=== PATIENT | female | born 1985 | race American Indian/Alaskan Native ===

== ENCOUNTER 2021-05-13 04:17 | Emergency (ER) | payer MEDICAID ==
[2021-05-13 04:51] VITALS: BP 141/72
[2021-05-13] MEDS ORDERED: ASPIRIN 325 MG TAB PO ONE (04:53)
--- NOTE | 2021-05-13 05:24 | XRay Report ---
CHEST 2 VIEWS INDICATION / CLINICAL INFORMATION: CHEST PAIN. COMPARISON: None available. FINDINGS: SUPPORT DEVICES: None. HEART / MEDIASTINUM: No significant abnormality. LUNGS / PLEURA: No significant pulmonary or pleural abnormality. No pneumothorax. ADDITIONAL FINDINGS: No significant additional findings. IMPRESSION: 1. No acute findings. Signer Name: Ben Cardona MD Signed: 05/13/2021 5:20 AM Workstation Name: [id number]
[2021-05-13 05:37] LABS: Basophils % (Auto) 0.5 % (0.0-1.8); Eosinophils # (Auto) 0.1 K/mm3 (0.0-0.4); Eosinophils % (Auto) 2.1 % (0.0-4.3); Hematocrit 38.4 % (30.3-42.9); Hemoglobin 12.6 gm/dl (10.1-14.3); Lymphocytes # (Auto) 1.6 K/mm3 (1.2-5.4); Lymphocytes % (Auto) 26.1 % (13.4-35.0); Mean Corpuscular HGB Conc 33 % (30-34); Mean Corpuscular Volume 88 fl (79-97); Monocytes # (Auto) 0.7 K/mm3 (0.0-0.8); Monocytes % (Auto) 12.2 % (0.0-7.3); Platelet Count 271 K/mm3 (140-440); Red Blood Count 4.39 M/mm3 (3.65-5.03); Red Cell Distribution Width 13.3 % (13.2-15.2)
[2021-05-13 05:55] LABS: Alanine Aminotransferase 18 units/L (7-56); Albumin 4.2 g/dL (3.9-5); BUN/Creatinine Ratio 12; Blood Urea Nitrogen 11 mg/dL (7-17); Calcium 9.4 mg/dL (8.4-10.2); Hemolysis Index 15
[2021-05-13 07:15] LABS: Bacteria,Urine 1+ /HPF (Negative); Bilirubin,Urine NEG (Negative); Blood,Urine NEG (Negative); Color,Urine Yellow (Yellow); Mucus,Urine FEW /HPF; Protein,Urine <15 mg/dL mg/dL (Negative); RBC,Urine < 1.0 /HPF (0.0-6.0); Urobilinogen,Urine < 2.0 mg/dL (<2.0); WBC,Urine < 1.0 /HPF (0.0-6.0)
[2021-05-13 07:23] LABS: HCG Qualitative,Urine Negative (Negative)
--- NOTE | 2021-05-13 07:33 | Emergency Department Report ---
ED Chest Pain HPI - General Chief Complaint: Chest Pain Stated Complaint: DIZZINESS Time Seen by Provider: 05/13/21 06:17 Source: patient Mode of arrival: Ambulatory Limitations: No Limitations - History of Present Illness Initial Comments: 36 yo black female with no pmh presents to the ed for evaluation of chest palpitations. She states that since yesterday, she has had intermittent palpitations with dizziness that only lasts a few minutes. 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 She denies palpitations, chest pain, sob, n/v, dizziness, and diaphoresis at this time. MD Complaint: other (palpitations) -: Gradual Onset: during rest Pain Location: left chest Severity scale (0 -10): 0 Consistency: now resolved Worsens With: nothing re: denies: nausea, vomting, diaphoresis, dyspnea, sense of impending doom Other Symptoms: palpitations. denies: cough, fever, syncope, rash, acid taste in mouth, leg swelling Treatments Prior to Arrival: none Aspirin use within the Past 7 Days: (0) No - Related Data On Oral Contraceptives: No Allergies Allergy/AdvReac Type Severity Reaction Status Date / Time No Known Allergies Allergy Verified 05/13/21 04:52 Heart Score - HEART Score History: Slightly suspicious EKG: Normal Age: < 45 Risk factors: 1-2 risk factors Troponin: < normal limit HEART Score: 1 - EKG Read Time Time EKG Completed: 05:00 EKG Read Time: 05:08 - Critical Actions Critical Actions: 0-3 pts:0.9-1.7%risk of adverse cardiac event.Candidate for discharge ED Review of Systems ROS: Stated complaint: DIZZINESS Other details as noted in HPI Comment: All other systems reviewed and negative Constitutional: denies: chills, fever Respiratory: denies: cough, shortness of breath, SOB with exertion, SOB at rest, stridor, wheezing Cardiovascular: palpitations. denies: chest pain, dyspnea on exertion, orthopnea, edema, syncope, paroxysmal nocturnal dyspnea Gastrointestinal: denies: abdominal pain, nausea, vomiting, diarrhea, hematemesis, melena, hematochezia Genitourinary: denies: urgency, dysuria Musculoskeletal: denies: back pain, joint swelling, arthralgia Neurological: denies: headache, weakness ED Physical Exam - General Limitations: No Limitations General appearance: alert, in no apparent distress - Head Head exam: Present: atraumatic, normocephalic - Eye Eye exam: Present: normal appearance. Absent: conjunctival injection - Respiratory Respiratory exam: Present: normal lung sounds bilaterally. Absent: respiratory distress, wheezes, rales, rhonchi, stridor, chest wall tenderness - Cardiovascular Cardiovascular Exam: Present: regular rate, normal rhythm, normal heart sounds - GI/Abdominal GI/Abdominal exam: Present: soft, normal bowel sounds. Absent: distended, tenderness, guarding, rebound, rigid - Extremities Exam Extremities exam: Present: normal inspection, normal capillary refill. Absent: pedal edema, joint swelling, calf tenderness - Back Exam Back exam: Present: normal inspection. Absent: CVA tenderness (R), CVA tenderness (L) - Neurological Exam Neurological exam: Present: alert, oriented X3, normal gait - Psychiatric Psychiatric exam: Present: normal affect, normal mood - Skin Skin exam: Present: warm, dry, intact, normal color ED Course Vital Signs 05/13/21 05/13/21 04:32 07:50 Temperature 98.2 F 97.8 F Pulse Rate 77 62 Respiratory 18 18 Rate Blood Pressure 141/72 O2 Sat by Pulse 97 97 Oximetry - Reevaluation(s) Reevaluation #1: 05/13/21 07:30 Patient denies palpitation or heart feeling funny at this time. She denies dizziness chest pain shortness of breath and diaphoresis. ED Medical Decision Making - Lab Data Result diagrams: 05/13/21 05:14 05/13/21 05:14 - EKG Data Interpretation: no acute changes, normal EKG - Radiology Data Radiology results: report reviewed, image reviewed CXR: Impression: No acute findings. - Medical Decision Making 36 yo black female with no pmh presents to the ed for evaluation of chest palpitations. She states that since yesterday, she has had intermittent palpitations with dizziness that only lasts a few minutes. 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 She denies palpitations, chest pain, sob, n/v, dizziness, and diaphoresis at this time. Patient denies symptoms at this time, EKG without acute ischemic changes, troponin wnl, cxr with acute abnormalities. Patient in nad and will be d/nydia home to follow up with cardiology for further evaluation and management. She was advised to return to ed for any concerning symptoms. She verbalized understanding of and agreement with plan of care. Critical care attestation.: If time is entered above; I have spent that time in minutes in the direct care of this critically ill patient, excluding procedure time. ED Disposition Clinical Impression: Intermittent palpitations Disposition: 01 HOME / SELF CARE / HOMELESS Is pt being admited?: No Does the pt Need Aspirin: No Condition: Stable Instructions: Palpitations, [id number] Additional Instructions: You need to follow-up with hide mill worker (heart doctor) for further evaluation and management and possible Holter monitor. Return to the emergency department for any concerning symptoms. Referrals: ABDIRAHMAN GANT MD [Staff Physician] - 3-5 Days MIGUEL SALMON MD [Staff Physician] - 3-5 Days Time of Disposition: 07:33
--- NOTE | 2021-05-13 12:13 | Electrocardiograph Report ---
[facility] Test Date: 2021-05-13 Test Time: 04:33:29 Pat Name: GURJIT KING Department: Room: Gender: F Rigger Chief: BRITTNEY : 1985 Requested By: ED DOC Order Number: [id number] Reading MD: Nathaniel Bowens Measurements Intervals [place] Rate: 72 P: 12 MA: 147 QRS: 63 QRSD: 81 T: 28 QT: 387 QTc: 424 Interpretive Statements Sinus rhythm No previous ECG available for comparison Electronically Signed On 05-13-2021 12:13:08 EDT by Nathaniel Bowens
== END 2021-05-13 08:48 | disposition home or self-care (01) ==
LOC: ED 04:17
DX: R00.2 Palpitations (principal)
CPT/HCPCS: 36415; 71046; 80053; 81001; 81025; 84484; 85025; 93005; 99284